=== PATIENT | male | born 1980 | race African-American/Black ===

== ENCOUNTER 2019-07-16 13:44 | Emergency (ER) | payer SELFPAY ==
[~2019-07-16] VITALS: Ht 175.3 cm; Wt 63.6 kg
[2019-07-16 15:29] VITALS: BP 116/79
== END 2019-07-16 16:04 | disposition home or self-care (01) ==
LOC: EMS 13:47
DX: F10.10 Alcohol abuse, uncomplicated (principal); F17.210 Nicotine dependence, cigarettes, uncomplicated